=== PATIENT | male | born 1950 | race Caucasian/White ===

== ENCOUNTER 2017-05-20 05:44 | Emergency (ER) | payer MEDICARE, OTHER ==
[2017-05-20] MEDS ORDERED: ALBUTEROL/IPRATROPIUM 1 VIAL SOL INH ONE (05:58)
[2017-05-20] MEDS ORDERED: ALBUTEROL/IPRATROPIUM 1 VIAL SOL ONE (06:00)
[2017-05-20 06:08] LABS: BASOPHILS % (AUTO) 1 % (0-3); EOSINOPHILS % (AUTO) 4 % (0-9); HEMATOCRIT 43 % (39-53); MEAN CORPUSCULAR HGB CONC 33.1 gm/dl (32.0-36.0); MEAN CORPUSCULAR VOLUME 88 fL (80-100); MONOCYTES % (AUTO) 11.1 % (0-12); NEUTROPHILS % (AUTO) 61.1 % (37-80)
[2017-05-20 06:09] VITALS: TEMP 98
[2017-05-20] MEDS ORDERED: ALBUTEROL NEB SOL 2.5MG/3ML 1 VIAL SOL NEB ONE (06:28)
[2017-05-20] MEDS ORDERED: ALBUTEROL NEB SOL 2.5MG/3ML 1 VIAL SOL ONE (06:29)
[2017-05-20 06:38] VITALS: RESP 12
[2017-05-20] MEDS ORDERED: BUDESONIDE 0.25 MG/2 ML SUS INH ONE (06:38)
[2017-05-20] MEDS ORDERED: PREDNISONE 20 MG TAB PO ONE (06:53)
[2017-05-20] MEDS ORDERED: PREDNISONE 20 MG TAB ONE (06:59)
[2017-05-20] MEDS ORDERED: CIPROFLOXACIN HCL 500 MG TAB PO SCH (07:00)
[2017-05-20] MEDS ORDERED: CIPROFLOXACIN HCL 500 MG TAB PO ONE (07:02)
[2017-05-20 08:41] VITALS: BP 143/78; PULSE 79; O2SAT 95
== END 2017-05-20 08:30 | disposition home or self-care (01) | DRG 190 ==
LOC: ED 05:44
DX: J44.1 Chronic obstructive pulmonary disease with (acute) exacerbation (principal); J18.9 Pneumonia, unspecified organism; J20.9 Acute bronchitis, unspecified; J44.0 Chronic obstructive pulmonary disease with (acute) lower respiratory infection
CPT/HCPCS: 71020; 71275; 80048; 84484; 85025; 85378; 93005; 99285; J7603; J7620; Q9967

== ENCOUNTER 2017-05-25 17:13 | Emergency (ER) | payer MEDICARE, OTHER ==
[2017-05-25 17:33] VITALS: BP 201/97; PULSE 67; RESP 18; TEMP 96.4; O2SAT 99
== END 2017-05-25 17:44 | disposition home or self-care (01) | DRG 558 ==
LOC: ED 17:13
DX: M75.102 Unspecified rotator cuff tear or rupture of left shoulder, not specified as traumatic (principal)
CPT/HCPCS: 99282